=== PATIENT | male | born 1980 | race Caucasian/White ===

== ENCOUNTER → 2019-10-31 | Outpatient (CLI) | payer OTHER ==
[2019-10-31 11:04] LABS: BASO # 0.1 10^3/uL (0.0-0.2); BASO % 0.9 % (0.0-1.0); EOS # 0.3 10^3/uL (0.0-0.5); EOS % 3.3 % (0.0-3.0); HEMATOCRIT 54.4 % (42.0-52.0); HEMOGLOBIN 18.5 g/dl (13.5-17.5); LYMPH # 2.3 10^3/uL (1.5-5.0); LYMPH % 30.9 % (24.0-44.0); MEAN CORPUSCULAR HEMOGLOBIN 32.5 pg (27.0-33.0); MEAN CORPUSCULAR VOLUME 95.6 fl (80.0-96.0); MONO # 0.7 10^3/uL (0.0-0.8); MONO % 8.7 % (0.0-5.0); NEUTROPHILS # 4.2 10^3/uL (1.5-8.5); NEUTROPHILS % 55.8 % (36.0-66.0); PLATELET COUNT, AUTOMATED 333 10^3/uL (150-450); RED BLOOD COUNT 5.69 10^6/uL (4.30-6.10); WHITE BLOOD COUNT 7.5 10^3/uL (4.0-10.0)
[2019-10-31 11:25] LABS: ALBUMIN 4.1 GM/DL (3.2-5.2); ALT/SGPT 45 U/L (12-78); BILIRUBIN,TOTAL 0.4 MG/DL (0.2-1.0); BLOOD UREA NITROGEN 7 MG/DL (7-18); CARBON DIOXIDE LEVEL 26 MEQ/L (21-32); CHLORIDE LEVEL 107 MEQ/L (98-107); GLOMERULAR FILTRATION RATE > 60.0 (>60); GLUCOSE, FASTING 100 MG/DL (70-100); POTASSIUM SERUM 4.3 MEQ/L (3.5-5.1); SODIUM LEVEL 141 MEQ/L (136-145); TOTAL PROTEIN 7.6 GM/DL (6.4-8.2)
[2019-11-01 11:16] LABS: HEPATITIS B SURFACE ANTIGEN NEGATIVE (NEGATIVE)
[2019-11-01 11:31] LABS: HEPATITIS B CORE ANTIBODY IGM NEGATIVE (NEGATIVE); HEPATITIS C VIRUS ABY INDEX < 0.0 INDEX (<0.8)
[2019-11-01 11:35] LABS: HEPATITIS A ANTIBODY IGM NEGATIVE (NEGATIVE)
[2019-11-01 11:40] LABS: HIV 1&2 SCREEN CENTAUR NEGATIVE (NEGATIVE)
[2019-11-01 13:05] LABS: HEPATITIS B SURFACE ANTIBODY NEGATIVE (POSITIVE)
== END ==
LOC: M LAB 09:49
PROVIDERS: ATTEND Dermatology
DX: D48.9 Neoplasm of uncertain behavior, unspecified (principal); L30.9 Dermatitis, unspecified

== ENCOUNTER → 2020-01-10 | Outpatient (CLI) | payer OTHER ==
[2020-01-10 13:23] LABS: BASO # 0.1 10^3/uL (0.0-0.2); BASO % 0.8 % (0.0-1.0); EOS # 0.4 10^3/uL (0.0-0.5); EOS % 4.3 % (0.0-3.0); HEMATOCRIT 53.6 % (42.0-52.0); HEMOGLOBIN 18.7 g/dl (13.5-17.5); LYMPH # 2.3 10^3/uL (1.5-5.0); LYMPH % 27.2 % (24.0-44.0); MEAN CORPUSCULAR HEMOGLOBIN 33.3 pg (27.0-33.0); MEAN CORPUSCULAR HGB CONC 34.9 g/dl (32.0-36.5); MEAN CORPUSCULAR VOLUME 95.5 fl (80.0-96.0); MONO # 0.6 10^3/uL (0.0-0.8); MONO % 7.5 % (0.0-5.0); NEUTROPHILS % 59.6 % (36.0-66.0); PLATELET COUNT, AUTOMATED 333 10^3/uL (150-450); RED BLOOD COUNT 5.61 10^6/uL (4.30-6.10); WHITE BLOOD COUNT 8.3 10^3/uL (4.0-10.0)
[2020-01-10 13:41] LABS: ALBUMIN 4.1 GM/DL (3.2-5.2); ALT/SGPT 48 U/L (12-78); BILIRUBIN,TOTAL 0.3 MG/DL (0.2-1.0); BLOOD UREA NITROGEN 13 MG/DL (7-18); CALCIUM LEVEL 9.2 MG/DL (8.5-10.1); CARBON DIOXIDE LEVEL 29 MEQ/L (21-32); CHLORIDE LEVEL 105 MEQ/L (98-107); CREATININE FOR GFR 0.73 MG/DL (0.70-1.30); GLOMERULAR FILTRATION RATE > 60.0 (>60); GLUCOSE, FASTING 93 MG/DL (70-100); POTASSIUM SERUM 4.6 MEQ/L (3.5-5.1); SODIUM LEVEL 139 MEQ/L (136-145); TOTAL PROTEIN 7.5 GM/DL (6.4-8.2)
== END ==
LOC: M WUC 10:27
PROVIDERS: ATTEND Dermatology
DX: L30.9 Dermatitis, unspecified (principal)

== ENCOUNTER → 2020-01-24 | Outpatient (CLI) | payer OTHER ==
[2020-01-24 10:07] LABS: HEMATOCRIT 51.7 % (42.0-52.0); HEMOGLOBIN 18.2 g/dl (13.5-17.5); MEAN CORPUSCULAR HEMOGLOBIN 33.8 pg (27.0-33.0); MEAN CORPUSCULAR HGB CONC 35.2 g/dl (32.0-36.5); MEAN CORPUSCULAR VOLUME 96.1 fl (80.0-96.0); PLATELET COUNT, AUTOMATED 290 10^3/uL (150-450); RED BLOOD COUNT 5.38 10^6/uL (4.30-6.10); WHITE BLOOD COUNT 13.5 10^3/uL (4.0-10.0)
== END ==
LOC: M WUC 09:17
PROVIDERS: ATTEND Dermatology
DX: L30.9 Dermatitis, unspecified (principal)

== ENCOUNTER → 2021-04-28 | Outpatient (CLI) | payer OTHER ==
--- NOTE | 2021-04-28 11:40 | REPVR ---
PROCEDURE INFORMATION: Exam: CT Maxillofacial Without Contrast, Sinus Exam date and time: 04/28/2021 9:23 AM Age: 40 years old Clinical indication: Other: Nasal polyp TECHNIQUE: Imaging protocol: CT Maxillofacial without contrast. Focus on the sinuses. Radiation optimization: All CT scans at this facility use at least one of these dose optimization techniques: automated exposure control; mA and/or kV adjustment per patient size (includes targeted exams where dose is matched to clinical indication); or iterative reconstruction. COMPARISON: MRI BRAIN W/ W/O CONTRAST - OUTSIDE PRIOR 03/26/2021 12:00 AM FINDINGS: Frontal sinuses: Left frontal sinus is completely opacified. No sinus expansion. Right frontal sinus is not developed. Left nasofrontal recess is opacified. Right nasofrontal recess is clear. Ethmoid air cells: Left anterior ethmoid air cells are completely opacified. No bony erosion or sinus expansion. There is small amount of mucosal thickening in right anterior ethmoid air cells and bilateral posterior ethmoid air cells. Sphenoid sinuses: There is small amount of mucosal thickening in bilateral left greater than right sphenoid sinuses. There is mild mucosal thickening at sphenoid ostia bilaterally but clear spheno-ethmoidal recesses. Maxillary sinuses: Left maxillary sinus is completely opacified. Left ostiomeatal complex is opacified. No sinus opacification. Right ostiomeatal complex is patent. Right maxillary sinus shows mild superomedial mucosal thickening. Nasal cavity/Septum: Nasal septum is deviated to the left. There may be an old fracture of anterior aspect of nasal septum. There is a small right ava bullosa. Orbital cavity: Orbits are normal. Globes are unremarkable. Bones/joints: See "Nasal cavity/Septum" finding. Soft tissues: Unremarkable. Dental: There are partially visualized maxillary dental caries and correlate with oral examination. There is retained portion of left anterior maxillary molar tooth #14 projecting into left maxillary sinus with a small bony defect surrounding the tooth at the base of the maxillary sinus measuring 3.8 mm which suggests a small bony antral-oral fistula. IMPRESSION: 1. Soft tissue polypoid density in left nasal cavity may be reported polyp and correlate with direct visualization. There is associated ostiomeatal complex distribution disease with complete opacification of left frontal sinus, left maxillary sinus, and left anterior ethmoid air cells, unchanged from MRI. Opacified left nasofrontal recess and ostiomeatal complex. Mild mucosal thickening in remaining paranasal sinuses. 2. Partially visualized dental caries in maxillary teeth. Retaining portion of left anterior maxillary molar tooth projecting into base of maxillary sinus with periodontal lucency around tooth at floor of maxillary sinus suggesting small antral-oral fistula. Electronically signed by: Meaghan Lambert On 04/28/2021 11:39:55 AM
== END ==
LOC: M RAD 09:01
PROVIDERS: ATTEND Otolaryngology
DX: J33.9 Nasal polyp, unspecified (principal)

== ENCOUNTER → 2021-05-19 | Outpatient (CLI) | payer OTHER ==
[~2021-05-19] MED LIST: DUPI300I SC; LISI10TA22 PO
== END ==
LOC: M LABSMTC 11:57
PROVIDERS: ATTEND Anesthesiology
DX: Z01.818 Encounter for other preprocedural examination (principal); Z11.52 Encounter for screening for COVID-19

== ENCOUNTER 2021-05-24 06:59 | Day surgery (SDC) | payer OTHER ==
[~2021-05-24] VITALS: Ht 175.3 cm; Wt 81.4 kg
[~2021-05-24 06:59] MED LIST changes: +LIDOCAINE 1% MDV 20ML VIAL SQ PRN; +LR 1,000 ML IV ONE
[2021-05-24] MEDS ORDERED: LIDOCAINE W/EPINEPHRINE 1% 20ML VIAL As Ordered ONE (08:27)
[2021-05-24] MEDS ORDERED: OXYMETAZOLINE 0.05% NASAL SPRAY (AFRIN) As Ordered ONE ×2 (08:28→12:13)
[2021-05-24] MEDS ORDERED: COCAINE 4% 4ML NASAL SOLUTION BTL As Ordered ONE (08:29)
[2021-05-24] MEDS ORDERED: LIDOCAINE 2% 100MG/5ML SDV (FOR ANES.) As Ordered ONE (08:36)
[2021-05-24] MEDS ORDERED: ONDANSETRON 4MG/2ML VIAL As Ordered ONE (08:36)
[2021-05-24] MEDS ORDERED: ROCURONIUM BROMIDE 50 MG/5 ML VIAL As Ordered ONE (08:36)
[2021-05-24] MEDS ORDERED: propofoL 200 MG/20 ML VIAL As Ordered ONE (08:36)
[2021-05-24] MEDS ORDERED: dexameTHASONE 4 MG/ML 1ML VIAL (J1100 PER 1MG) As Ordered ONE (08:36)
[2021-05-24] MEDS ORDERED: fentaNYL 250 MCG/5 ML INJECTION (J3010) As Ordered ONE (08:37)
[2021-05-24] MEDS ORDERED: MIDAZOLAM INJ 2MG/2ML VIAL (J2250 PER 1MG) As Ordered ONE (08:37)
[2021-05-24] MEDS ORDERED: ALBUTEROL 6.7GM INHALER **FOR ANES. CART/OMNICELL ONLY As Ordered ONE (09:43)
[2021-05-24] MEDS ORDERED: ACETAMINOPHEN 1000MG 100ML IV BTL (OFIRMEV) (J0131 PER 10MG) As Ordered ONE (10:06)
[2021-05-24] MEDS ORDERED: SUGAMMADEX SODIUM 500 MG/5 ML VIAL (BRIDION) As Ordered ONE (10:06)
[2021-05-24] MEDS ORDERED: HYDROmorphone HCL 2 MG/ML 1ML VIAL (J1170) As Ordered ONE (10:20)
[2021-05-24] MEDS ORDERED: LABETALOL 100MG/20ML VIAL As Ordered ONE (10:28)
[2021-05-24] MEDS: fentaNYL 100 MCG/2 ML INJECTION (J3010) IV PRN ×2 (12:50→13:28)
[2021-05-24] MEDS ORDERED: fentaNYL 100 MCG/2 ML INJECTION (J3010) As Ordered ONE (12:59)
[2021-05-24] MEDS ORDERED: LR 1,000 ML IV SCH ×2 (13:00→13:05)
[2021-05-24] MEDS ORDERED: ONDANSETRON 4MG/2ML VIAL IV PRN (13:00)
[2021-05-24] MEDS ORDERED: hydrALAZINE 20MG/ML 1ML VIAL (J0360 PER 20MG) As Ordered ONE (13:11)
[2021-05-24] MEDS: oxyCODONE 5MG TAB PO PRN ×2 (13:20→14:11)
[2021-05-24] MEDS: hydrALAZINE 20MG/ML 1ML VIAL (J0360 PER 20MG) IV PRN ×2 (13:21→13:31)
[2021-05-24 13:31] VITALS: BP 164/95
[2021-05-24 15:40] VITALS: BP 162/85
--- NOTE | 2021-05-25 13:07 | POST-OPPD ---
Postoperative Procedure Note Date Of Procedure: May 24, 2021 Time Of Procedure: 09:00 PREOPERATIVE DIAGNOSIS: [Left chronic sinusitis, left nasal polyposis, septal deviation bilateral hypertrophic inferior turbinates] POSTOPERATIVE DIAGNOSIS: [Same] PROCEDURE: [Left intranasal image guided frontal sinusotomy, left intranasal image guided total ethmoidectomy left intranasal image guided maxillary antrostomy with removal of polyps, left intranasal image guided sphenoidotomy with removal of polyps, septoplasty, bilateral submucous resection inferior turbinates] SURGEON: Jeni] BUILDER BEAM: [None] ANESTHESIA: [General] ESTIMATED BLOOD LOSS: [300] FINDINGS: SPECIMENS: [Left sinus contents] COMPLICATIONS: [None] REPLACED: [None] DRAINS: [None] POSTOPERATIVE CONDITION: [Stable] Operative note: Alfa is a 40-year-old gentleman who was seen in the office and diagnosed with the above condition decision was made in consultation with the patient after explanation of the risks and benefits. He was admitted through same-day surgery program taken to the operating room where is ministered a general anesthetic via intravenous injection. He was then intubated endotracheally. The nose was decongested with 4 cc of 4% cocaine solution on nasal pledgets image guided array was placed on the forehead and the fiducial points were entered into the computer. Excellent accuracy was obtained. Patient was draped in the usual fashion. Pledgets were removed from the left side of the nose and a 4 mm endoscope was inserted. We advanced to the area of the middle meatus. There was copious polyps evident. Access was limited by the septal deviation. Decision was made to perform the septoplasty first. The scope was removed the right and left septum was injected with 1% lidocaine with epinephrine. A right hemitransfixion incision was created with the Wasatch blade. A mucoperichondrial flap was elevated on this side. This was extended posteriorly over the perpe ndicular plate of ethmoid and vomer. There was a septal spur on the right inferiorly we used the caudal elevator to elevate over the spur. We the bony and cartilaginous septums and elevated on the opposite side we then used the Avtar forceps to remove the deviated portion of bone posteriorly. We elevated on either side of the maxillary crest and used a 4 mm osteotome to remove this. The flap was then laid back into position and reapproximated with interrupted 4-0 chromic suture the septum was quilted with interrupted 4-0 plain gut suture. The scope was placed back in the left side of the nose and we had much better access to the middle meatal area. The polyps were injected with 1% lidocaine with epinephrine. We used a Avtar forcep to harvest several polyps for tissue identification. We used the image guided microdebrider to remove polyps in the middle meatal area. The curved tracking suction was used to identify the maxillary sinus ostium this was enlarged with the backbiting forceps and the microdebrider copious polypoid material was removed from the left maxillary sinus. We entered the ethmoid bulla with the microdebrider. Anterior ethmoid air cells were then cleaned out with the image guided microdebrider. We penetrated through the ground lamella and cleaned out the posterior ethmoid air cells in a similar fashion. We identified the sphenoid rostrum and entered the sphenoid sinus inferiorly and medially. We enlarged this with the punch forcep and the debrider. We suction debris from the sphenoid sinus as well. We then used a curved tracking suction to move superiorly in a posterior to anterior fashion and identified the frontal recess area. A large amount of polypoid material was removed from this area. We used the frontal sinus seeker to identify the ostium we then passed the balloon up into the frontal sinus and dilated the ostium purulent material was released and suctioned. We then irrigated the frontal sinus with 180 cc of saline. The balloon was removed and additional tissue was removed from the recess until we could clearly see up into the frontal sinus. Afrin-soaked packing was placed on the side of the nose. We then injected the inferior turbinate on the left with 1% lidocaine with epinephrine a freer elevator was used to make an anterior incision in the inferior turbinate. We elevated the mucosa off the turbinate and used the 2.9 microdebrider blade to reduce this in the submucosal plane this was then lateralized with a Antonio elevator. The right inferior turbinate was injected with same 1% lidocaine with epinephrine. We made a vertical incision again the mucosa was elevated with a Herman wheeze a 2.9 microdebrider blade to reduce this along its length. This was then lateralized with a Antonio elevator. The packing was removed from the left side of the nose. Magnetic splints were placed on either side and secured anteriorly with a Prolene suture. FloSeal was placed in the middle meatal area on the left. Slimline's were placed against the inferior turbinates bilaterally and removed in recovery. A mustache dressing was placed onto the nose the patient was allowed to recover from anesthetic and taken the postanesthesia care area in stable condition. Artis Dominguez MD May 25, 2021 13:07
== END 2021-05-24 15:50 | disposition home or self-care (01) ==
LOC: M SDC 06:59
PROVIDERS: ATTEND Otolaryngology
DX: J31.0 Chronic rhinitis (principal); J34.2 Deviated nasal septum; J33.9 Nasal polyp, unspecified; I10 Essential (primary) hypertension; L30.9 Dermatitis, unspecified; Z79.899 Other long term (current) drug therapy; F17.218 Nicotine dependence, cigarettes, with other nicotine-induced disorders; F12.10 Cannabis abuse, uncomplicated
CPT/HCPCS: 30140; 30520; 31256; 31288; 88305; C9046; J0131; J0360; J1100; J1170; J2250; J2405; J3010